=== PATIENT | male | born 1995 | race Caucasian/White ===

== ENCOUNTER 2017-10-27 09:55 | Emergency (ER) | payer SELFPAY ==
[2017-10-27 10:26] LABS: #Eosinphils 0.2 thou/uL (0.0-0.7); #Lymphocytes 1.2 thou/uL (1.20-3.40); #Monocytes 0.6 thou/uL (0.11-0.59); #Neutrophils 3.6 thou/uL (1.40-6.50); %Basophils 0.6 % (0.0-1.0); %Eosinophils 3.4 % (0.0-10.0); %Lymphocytes 20.8 % (21.0-51.0); %Monocytes 10.9 % (0.0-10.0); Mean Platelet Volume 7.2 fL (7.4-10.4); Red Blood Cell (RBC) Count 4.78 mill/uL (4.70-6.10); White Blood Cell (WBC) Count 5.6 thou/uL (4.8-10.8)
[2017-10-27 11:47] LABS: Bilirubin Negative (Negative); Blood, Urine Negative (Negative); Glucose, Urine (Dipstick) Negative (Negative); Ketone, Urine 15 mg/dL (Negative); Nitrite Negative (Negative); Protein, Urine (Dipstick) Negative (Neg-Trace)
[2017-10-27 11:50] LABS: Bacteria/HPF None Seen HPF (None Seen); Hyaline Casts/LPF 4-6 HYALINE CAST LPF (0-3 Hyaline); RBC/HPF 0-3 HPF (0-3); Squamous Epithelial 0-3 HPF (0-3)
[2017-10-27 11:53] LABS: ALT (SGPT) 30 U/L (8-55); AST (SGOT) 25 U/L (5-34); Alkaline Phosphatase 61 U/L (40-150); Anion Gap 12 mmol/L (10-20); BUN (Urea Nitrogen) 11 mg/dL (8.9-20.6); Bilirubin, Total 1.1 mg/dL (0.2-1.2); Calc. Creatinine Clearance 0 mL/min (70-130); Calcium 9.8 mg/dL (7.8-10.44); Carbon Dioxide 27 mmol/L (22-29); Chloride 101 mmol/L (98-107); Estimated GFR-MDRD Greater than 90; Lipase 8 U/L (8-78); Protein, Total 7.6 g/dL (6.0-8.3)
[2017-10-27 11:59] LABS: Renal Epithelial 0-3 HPF (0-3); Transitional Epithelial NONE SEEN HPF (0-3)
== END 2017-10-27 12:13 | disposition home or self-care (01) ==
LOC: ERS 09:55
DX: R11.2 Nausea with vomiting, unspecified (principal)
CPT/HCPCS: 36415; 80053; 81003; 81015; 83690; 85025; 87086; 87491; 87591

== ENCOUNTER 2017-12-28 03:49 | Day surgery (SDC) | payer SELFPAY ==
[2017-12-28] MEDS ORDERED: CEFAZOLIN/Water 2 GM/20 ML SYRINGE ONE ×2 (04:54→10:02)
[2017-12-28] MEDS ORDERED: Lidocaine 2% PF 5 ML VIAL ONE (06:37)
[2017-12-28] MEDS ORDERED: Bupivacaine 0.5% 10 ML VIAL ONE (06:37)
--- NOTE | 2017-12-28 07:48 | RAD ---
LEFT HAND 2 VIEWS: Date: 12/28/17 HISTORY: Injury, pain in left thumb. FINDINGS/IMPRESSION: There is dorsal dislocation of the IP joint of the left thumb. POS: [facility]
[2017-12-28] MEDS ORDERED: CEFAZOLIN/Water 2 GM/20 ML SYRINGE SLOW IVP SCH (08:45)
[2017-12-28] MEDS ORDERED: Midazolam HCl 2 mg/2 ml Vial ONE ×2 (09:29→10:50)
[2017-12-28] MEDS ORDERED: Famotidine/PF 20 mg/2ml Vial ONE (09:29)
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
[2017-12-28] MEDS ORDERED: Fentanyl 100 MCG/2 ML VIAL ONE (10:50)
[2017-12-28] MEDS ORDERED: Neomycin-Polymyxin 1 ML AMP ONE (11:36)
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
[2017-12-28] MEDS ORDERED: Acetaminophen/Codeine 30-300mg Tablet ONE (13:46)
[2017-12-28] MEDS ORDERED: ePHEDrine/0.9% NaCl/PF SYRINGE 50 mg/10 ml ONE (16:37)
[2017-12-28] MEDS ORDERED: Ondansetron PF 4 MG/2 ML Vial ONE (16:37)
[2017-12-28] MEDS ORDERED: diphenhydrAMINE 50 MG/ML VIAL ONE (16:37)
[2017-12-28] MEDS ORDERED: Lidocaine 1% PF 5 ML VIAL ONE (16:37)
[2017-12-28] MEDS ORDERED: PROPOFOL 200 MG/20 ML VIAL ONE (16:37)
== END 2017-12-28 15:10 | disposition home or self-care (01) ==
LOC: ERS 03:49 → SDC 08:15
PROVIDERS: ATTEND Orthopaedic Surgery
PROC: 0PSS0ZZ Reposition Left Thumb Phalanx, Open Approach (ICD-10-PCS; principal; 2017-12-28)
DX: S62.502B Fracture of unspecified phalanx of left thumb, initial encounter for open fracture (principal); F17.210 Nicotine dependence, cigarettes, uncomplicated; F10.129 Alcohol abuse with intoxication, unspecified
CPT/HCPCS: 80307; 96374; 96375; J0696; J1200; J2001; J2250; J2270; J2405; J2704; J3010; J3490; S0028

== ENCOUNTER 2018-01-23 16:12 | Emergency (ER) | payer SELFPAY ==
--- NOTE | 2018-01-23 17:28 | RAD ---
RIGHT KNEE: 01/23/18 Five views. HISTORY: Injury with knee pain. There is a fracture involving the lateral patella. Slight displacement of this lateral fragment. Ther e is mild prepatellar soft tissue fullness. There is evidence of joint effusion. IMPRESSION: Patella fracture. POS: [facility]
[2018-01-23] MEDS ORDERED: Ondansetron ODT 4 MG TAB ONE (18:43)
[2018-01-23] MEDS ORDERED: Ketorolac Tromethamine 30 MG/ML VIAL ONE (18:43)
[2018-01-23] MEDS ORDERED: Morphine 4 MG/ML VIAL ONE (18:48)
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
== END 2018-01-23 20:28 | disposition home or self-care (01) ==
LOC: ERS 16:12
DX: S82.001A Unspecified fracture of right patella, initial encounter for closed fracture (principal); S00.83XA Contusion of other part of head, initial encounter; F17.210 Nicotine dependence, cigarettes, uncomplicated; Y09 Assault by unspecified means
CPT/HCPCS: 70450; 96372; J1885; J2270; Q0162

== ENCOUNTER 2018-02-26 02:59 | Emergency (ER) | payer SELFPAY ==
[2018-02-26 03:52] LABS: #Basophils 0.1 thou/uL (0.0-0.2); #Eosinphils 0.2 thou/uL (0.0-0.7); #Lymphocytes 1.9 thou/uL (1.20-3.40); #Monocytes 0.6 thou/uL (0.11-0.59); #Neutrophils 5.4 thou/uL (1.40-6.50); %Basophils 0.8 % (0.0-1.0); %Lymphocytes 23.7 % (21.0-51.0); %Monocytes 7.1 % (0.0-10.0); %Neutrophils 66.4 % (42.0-75.0); Hemoglobin 15.4 g/dL (14.0-18.0); Mean Corpuscular HGB CONC 36.2 g/dL (32.0-36.0); Mean Corpuscular Hemoglobin 32.2 pg (27.0-31.0); Mean Corpuscular Volume 88.9 fl (80.0-94.0); Mean Platelet Volume 6.9 fL (7.4-10.4); Platelet Count 231 thou/uL (130-400); RBC Distribution Width 11.9 % (11.5-14.5); White Blood Cell (WBC) Count 8.1 thou/uL (4.8-10.8)
[2018-02-26] MEDS ORDERED: Lorazepam 1 MG TAB ONE (04:07)
[2018-02-26 04:13] LABS: ALT (SGPT) 29 U/L (8-55); AST (SGOT) 18 U/L (5-34); Acetaminophen Less than 6.0 mcg/mL (10.0-30.0); Alcohol Less than 10 mg/dL (Less than 10); Alkaline Phosphatase 68 U/L (40-150); Anion Gap 19 mmol/L (10-20); BUN (Urea Nitrogen) 11 mg/dL (8.9-20.6); Bilirubin, Total 0.3 mg/dL (0.2-1.2); Calc. Creatinine Clearance 0 mL/min (70-130); Calcium 9.6 mg/dL (7.8-10.44); Carbon Dioxide 20 mmol/L (22-29); Chloride 103 mmol/L (98-107); Estimated GFR-MDRD Greater than 90; Globulin 2.9 g/dL (2.4-3.5); Glucose 150 mg/dL (70-105); Potassium 3.5 mmol/L (3.5-5.1); Protein, Total 7.9 g/dL (6.0-8.3); Salicylate Less than 8.0 mg/dL (15.0-30.0); Sodium 138 mmol/L (136-145)
[2018-02-26 04:17] LABS: CKMB 0.6 ng/mL (0-6.6); Troponin I Less than 0.010 ng/mL (< 0.028)
--- NOTE | 2018-02-26 08:30 | RAD ---
PORTABLE CHEST: Date: 02/26/18 HISTORY: Chest pain. FINDINGS: Heart size and mediastinum are within normal limits. Lungs are clear of infiltrates. No significant b erick findings. IMPRESSION: No active intrathoracic disease. POS: [facility]
--- NOTE | 2018-05-01 12:32 | EKG ---
Test Reason : NURKKM Blood Pressure : / mmHG Vent. Rate : 125 BPM Atrial Rate : 125 BPM P-R Int : 156 ms QRS Dur : 090 ms QT Int : 314 ms P-R-T Axes : 078 087 070 degrees QTc Int : 453 ms Sinus tachycardia Possible Left atrial enlargement Borderline ECG Confirmed by ZAIRA COOK ([id number]), editorial writer JEREMIAH CHAMPION ([id number]) on 05/01/2018 12:31:46 PM Referred By: Confirmed By:ZAIRA COOK
== END 2018-02-26 04:39 | disposition home or self-care (01) ==
LOC: ERS 02:59
DX: F41.9 Anxiety disorder, unspecified (principal); F14.10 Cocaine abuse, uncomplicated; F12.10 Cannabis abuse, uncomplicated; F17.210 Nicotine dependence, cigarettes, uncomplicated; Z71.6 Tobacco abuse counseling
CPT/HCPCS: 36415; 71045; 80053; 80307; 82553; 84484; 85025; 93005; 99406